=== PATIENT | male | born 2000 | race Caucasian/White ===

== ENCOUNTER 2019-07-05 15:45 | Emergency (ER) | payer MEDICAID, SELFPAY ==
--- NOTE | ~2019-07-05 | XR_ITS ---
XR shoulder LT min 2V 07/05/2019 16:25 INDICATION: Left shoulder pain after lifting injury PROCEDURE: 4 views left shoulder COMPARISON: No prior studies for comparison. FINDINGS: Fracture, dislocation or subluxation is not identified. The soft tissues appear within norm al limits. No foreign bodies are identified. IMPRESSION: 1: NO ACUTE BONE OR JOINT ABNORMALITY IDENTIFIED. Reviewed, dictated and finalized at location A.
[2019-07-05 15:55] VITALS: BP 133/64; PULSE 72; RESP 20; TEMP 37; O2SAT 99
--- NOTE | 2019-07-05 16:05 | ED.GENADULT ---
HPI - General Adult General Chief complaint: Extremity Injury, Upper Stated complaint: left arm pain Time Seen by Provider: 07/05/19 16:10 Source: patient and RN notes reviewed Mode of arrival: ambulatory Limitations: no limitations History of Present Illness HPI narrative: 18-year-old male who presents to [facility] care with complaints of 2 to 3-day duration of shoulder pain which radiates down to his upper arm with no known specific injury to his left shoulder. Patient states that he was lifting a large tea urn at work today and thought his arm was going to give out on him with increase pain to his left shoulder noted. Patient has pain to the left anterior AC joint region radiating down into his left upper arm, patient has full mobility of his left shoulder but with increase in his discomfort, denies any tingling or numbness to his left shoulder, has strong pulses to his left arm with nail beds blanching briskly to his left hand. MD complaint: left shoulder pain Onset (ago): day(s) (2-3) Location: left (shoulder and upper left arm) and upper extremity Radiation: other (To left upper arm) Severity: moderate Severity scale (1-10): 6 Quality: aching and sharp Pain Consistency: constant Relieving factors: none Exacerbating factors: movement and other (lifting) Associated symptoms: denies other symptoms Treatments prior to arrival: NSAID Related Data Allergies Allergy/AdvReac Type Severity Reaction Status Date / Time No Known Allergies Allergy Verified 07/05/19 16:13 Review of Systems Review of Systems: Narrative: CONSTITUTIONAL: Denies fever, chills, or sweats. EYES: Denies visual changes, redness, or discharge. ENT: Denies rhinorrhea, congestion, sore throat, or otalgia. CARDIOVASCULAR: Denies chest pain, palpitations, or edema. RESPIRATORY: Denies cough or dyspnea. GASTROINTESTINAL: Denies abdominal pain, nausea, vomiting, or diarrhea. GENITOURINARY: Denies dysuria or hematuria. SKIN: Denies rash or itching. MUSCULOSKELETAL: Denies back pain, positive left shoulder pain radiating into left upper arm or myalgia. NEUROLOGIC: Denies headache, numbness, or weakness. PSYCHIATRIC: Denies anxiety or depression. All systems reviewed & are unremarkable except as noted in HPI and below PMFSH Past Medical History Medical History (Updated 07/07/19 @ 11:51 by Queenie Barnard NP) ADD (attention deficit disorder) ADHD Fracture of right wrist Social History Social History (Updated 07/05/19 @ 16:22 by Queenie Barnard NP) Smoking status: Current every day smoker Tobacco type: e-cigarettes Gender identity (if verbalized by the patient): Male Comments At time of signature, agree with nursing past medical, social history. There is no relevant family history pertinent to the presenting complaint Exam Narrative: Exam Narrative: GENERAL: Well-appearing, well-nourished, and in no acute distress. HEAD: Normocephalic, atraumatic. EYES: PERRLA and EOMI. ENT: Nares clear, no rhinorrhea or epistaxis. Mucous membranes moist. NECK: Supple.no lymphadenopathy CHEST: Clear to auscultation. No respiratory distress.SAO2 99% on room air HEART: Regular rate and rhythm. No murmur heard. Normal peripheral pulses. ABDOMEN: Soft, nontender, nondistended, normal active bowel sounds. EXTREMITIES: Normal range of motion. No edema.voiced pain in left shoulder going into his upper arm with increase intensity today after lifting tea urn at work, patient has good mobility of shoulder but states increase discomfort with movement.strong pulses with no tingling or numbness to his left arm or hand. SKIN: Warm, dry, no rash. NEURO: No focal deficits. Alert and oriented x3. Course Vital Signs Vital signs: Vital Signs Temperature 37.0 C 07/05/19 15:55 Pulse Rate 72 07/05/19 15:55 Respiratory Rate 20 07/05/19 15:55 Blood Pressure 133/64 07/05/19 15:55 Pulse Oximetry 99 07/05/19 15:55 Temperature 37.0 C 07/05/19 15:55 Pulse Rate 72
--- NOTE | 2019-07-05 17:29 | PC.NURSE ---
noted at discharge xray report not available, pt states will not wait. provider informed she would review report and notify him of results if not negative.
== END 2019-07-05 17:10 | disposition home or self-care (01) ==
PROVIDERS: Emergency Provider Registered Nurse
DX: S43.402A Unspecified sprain of left shoulder joint, initial encounter (principal); X58.XXXA Exposure to other specified factors, initial encounter; F17.200 Nicotine dependence, unspecified, uncomplicated
CPT/HCPCS: 73030; 99213; G0463

== ENCOUNTER 2019-08-12 16:50 | Emergency (ER) | payer MEDICAID, SELFPAY ==
--- NOTE | ~2019-08-12 | XR_ITS ---
EXAMINATION: XR thoracic spine 3V DATE: 08/12/2019 17:32 INDICATION: Back pain TECHNIQUE: AP, lateral and lateral swimmer's views of the thoracic spine were obtained. COMPARISON: None. FINDINGS: There is no fracture, dislocation, or subluxation. The vertebral body heights, alignment, a nd intervertebral disc spaces are normal. The paravertebral soft tissues are unremarkable. IMPRESSION: 1. No acute osseous abnormality. Reviewed, dictated and finalized at location A.
[2019-08-12 16:56] VITALS: BP 134/68; PULSE 107; RESP 20; TEMP 37; O2SAT 99
--- NOTE | 2019-08-12 16:59 | ED.GENADULT ---
HPI - General Adult General Chief complaint: Head Injury Stated complaint: hit head on table Time Seen by Provider: 08/12/19 17:09 Source: patient Mode of arrival: ambulatory Limitations: no limitations History of Present Illness HPI narrative: 18-year-old male patient presents to the [facility] with complaints of a headache after hitting his head on a table today. Patient states about 30 minutes prior to arrival he tripped and fell and hit the front of his head on a plywood table. Patient denies loss of consciousness or passing out. Patient states he does feel little bit dizzy and has about 5 out of 10 head pain. Denies take anything for the pain at this time. Denies any dizziness prior to the fall. Patient states he has been really tired recently because he has been working a lot typically 7 days a week long shifts at [employer] due to the fact that he is on the only one working in his family right now. Patient states that his mother is concerned because he is also had some depression and anxiety lately. Patient states that times he does think of suicide but denies any suicidal or homicidal ideations at this time. Patient states he is really good on some days but feels very depressed on other days. Patient states he has never been treated for depression before in the past and does not currently see a doctor for it. Patient states he works 7 days a week long hour shifts and does not feel like he has time for anything else at this time. Related Data Allergies Allergy/AdvReac Type Severity Reaction Status Date / Time No Known Allergies Allergy Verified 07/05/19 16:13 Review of Systems Review of Systems: Narrative: CONSTITUTIONAL: Denies fever, chills, or sweats. EYES: Denies visual changes, redness, or discharge. ENT: Denies rhinorrhea, congestion, sore throat, or otalgia. CARDIOVASCULAR: Denies chest pain, palpitations, or edema. RESPIRATORY: Denies cough or dyspnea. GASTROINTESTINAL: Denies abdominal pain, nausea, vomiting, or diarrhea. GENITOURINARY: Denies dysuria or hematuria. SKIN: Denies rash or itching. MUSCULOSKELETAL: Denies back pain, joint pain, or myalgia. NEUROLOGIC: Positive headache, denies numbness, or weakness. PSYCHIATRIC: Positive anxiety and depression. [facility] Past Medical History Medical History ADD (attention deficit disorder) ADHD Fracture of right wrist Social History Social History Smoking status: Current every day smoker Tobacco type: e-cigarettes/vaping Gender identity (if verbalized by the patient): Male Comments At the time of my signature I agree with nursing past medical history, surgical, social, and family history. There is no relevant family history pertinent to the presenting complaint. Exam Narrative: Exam Narrative: GENERAL: Well-appearing, well-nourished, and in no acute distress. HEAD: Normocephalic, patient does have a contusion/abrasion noted right in the middle of the upper forehead approximately 2.5 cm. The area does appear red but there is no open wound. No active bleeding noted. EYES: PERRLA and EOM intact without limitation or complaint of pain, no periorbital soft tissue swelling ,no erythema, warmth or tenderness noted, no obvious deformity. No crusting or swelling.no tearing or draining.No photophobia. No nystagmus No FB or lesion on lid eversion. Corneas grossly clear, no obvious FB or hyphens/hypopyon. No injection to sclera. Lids and lashes clear. ENT: Nares clear, no rhinorrhea or epistaxis. Mucous membranes moist. NECK: Supple. No lymphadenopathy CHEST: Clear to auscultation. No respiratory distress. HEART: Regular rate and rhythm. No murmur heard. Normal peripheral pulses. ABDOMEN: Soft, nontender, nondistended, normal active bowel sounds. EXTREMITIES: Normal range of motion. No edema. BACK: Patient is able to ambulated without assistance. Pt is seated on
--- NOTE | 2019-08-12 20:07 | PC.NURSE ---
1725 observed pt leaving room and going to lobby. accompanied pt back to room, informed him xray results not yet available and that he was not discharged. observed steady on feet with no c/o. 1735 determined pt not in room, not in building, not in parking lot. noted pt previously accompanied to clinic with mother, who remained in lobby during stay, refusing to sit in car following [employer] policy. attempted to call pt at [phone] - no answer, left message to return call at [phone] to speak to provider/nurse.
== END 2019-08-12 17:35 | disposition left against medical advice (07) ==
PROVIDERS: Emergency Provider Nurse Practitioner Family
DX: S09.90XA Unspecified injury of head, initial encounter (principal); W18.09XA Striking against other object with subsequent fall, initial encounter
CPT/HCPCS: 72072; 99213; G0463

== ENCOUNTER 2020-03-14 10:21 | Emergency (ER) | payer OTHER, SELFPAY ==
[2020-03-14] VITALS (22 sets, daily range): BP systolic 109–139; BP diastolic 53–77; PULSE 55–91; RESP 8–23; TEMP 36.8; O2SAT 93–100
--- NOTE | ~2020-03-14 | XR_ITS ---
EXAMINATION: XR chest 2V EXAM DATE: 03/14/2020 11:23 INDICATION: Chest pain. Left arm numbness. TECHNIQUE: Portable AP frontal chest x-ray was obtained. There is no prior study for comparison. FINDINGS: The lungs are clear. There are no pleural effusions. The cardiomediastinal silhouette is within normal limits. There is no pneumothorax suspected. The bones and soft tissues are unremarkab le. IMPRESSION: No acute cardiopulmonary findings. Reviewed, dictated and finalized at location B. RGICAL MUSIC DIRECTOR
--- NOTE | 2020-03-14 10:27 | ECG_ITS ---
Measurements Intervals [place] Rate: 72 P: -24 AL: 161 QRS: 143 QRSD: 93 T: -29 QT: 359 QTc: 395 Interpretive Statements SINUS RHYTHM WITH SINUS ARRHYTHMIA RIGHT AXIS DEVIATION INCOMPLETE RIGHT BUNDLE BRANCH BLOCK HIGH LATERAL INFARCT, AGE INDETERMINATE BORDERLINE T WAVE ABNORMALITY- INFERIOR LEADS ABNORMAL ECG Electronically Signed On 03-14-2020 10:52:14 [employer]ITION [employer] WORK[employer] by [place] D.O.
[2020-03-14 11:03] LABS: Basophils Percent Auto 0.4 % (0.2-1.2); Eosinophils Absolute Auto 0.1 K/mm3 (0-0.3); Eosinophils Percent Auto 0.7 % (0-4.4); Hematocrit 43.1 % (42.0-52.0); Hemoglobin 14.8 g/dL (14.0-18.0); Immature Granulocyte Absolute 0.02 K/mm3 (0.00-0.031); Immature Granulocyte Percent A 0.2 % (0-0.5); Lymphocytes Absolute Auto 1.76 K/mm3 (0.9-3.2); Lymphocytes Percent Auto 21.2 % (18.3-44.2); Mean Corpuscular HGB Conc 34.3 g/dl (32-36); Mean Corpuscular Volume 90.4 fl (80-100); Mean Platelet Volume 9.1 fl (7.4-10.4); Monocytes Absolute Auto 0.5 K/mm3 (0.1-0.6); Monocytes Percent Auto 5.9 % (2.6-8.5); Neutrophils Absolute Auto 5.9 K/mm3 (1.3-6.7); Neutrophils Percent Auto 71.6 % (45.5-73.1); Platelet Count Result 288 k/mm3 (150-375); Red Blood Count 4.77 M/mm3 (4.6-6.20); Red Cell Distribution Width 12.2 % (11.5-14.5); White Blood Count 8.3 K/mm3 (4.5-10.0)
[2020-03-14] MEDS: ASPIRIN 81 MG CHEWABLE TABLET 324 MG PO (11:03)
[2020-03-14 11:14] LABS: Prothrombin Time 14.2 Seconds (11.1-14.7)
[2020-03-14 11:15] LABS: Partial Thromboplastin Time 32.3 SECONDS (22.3-36.8)
--- NOTE | 2020-03-14 11:15 | PC.NURSE ---
received report from Asmita FOX. no change in condition. patient here with chest pain. resting on stretcher. waiting for all tests results.
[2020-03-14 11:18] LABS: Anion Gap 11 mmol/L (8-16); Blood Urea Nitrogen 13 mg/dL (9-20); Calcium 9.3 mg/dL (8.4-10.2); Carbon Dioxide 25 mmol/L (22-30); Chloride 106 mmol/L (98-107); Estimated CRCL calculation 144 ml/min; Estimated Glomerular Filt Rate > 60; Glucose 101 mg/dL (75-110); Potassium 3.9 mmol/L (3.4-5.0); Sodium 142 mmol/L (137-145)
[2020-03-14 11:29] LABS: Troponin I < 0.012 ng/mL (0.000-0.034)
[2020-03-14] MEDS: KETOROLAC 30 MG/ML VIAL (*BKC) IM (11:31)
[2020-03-14] MEDS: KETOROLAC 30 MG/ML VIAL (*BKC) IV PUSH (11:34)
[2020-03-14 11:39] LABS: D Dimer 0.27 ug/mL (<0.48)
--- NOTE | 2020-03-14 13:04 | ED.CHESTPAIN ---
HPI - Chest Pain General Chief Complaint: Chest Pain Stated Complaint: CHEST PAIN 929 Time Seen by Provider: 03/14/20 11:05 History of Present Illness HPI narrative: Patient is a 19-year-old male who presents ER with left-sided chest pain. Sudden onset while he was at work. Is located under his left back. Its worse with palpation and movement. No shortness of breath or hemoptysis. No fevers or chills or sweats. Patient also reports he is having some pain in his neck and some numbness in his left arm which concerned him. He was sent here for further evaluation after asking to leave work. No family history of early cardiac or coronary disease. Related Data Allergies Allergy/AdvReac Type Severity Reaction Status Date / Time No Known Allergies Allergy Verified 03/14/20 10:30 Review of Systems Review of Systems: All systems reviewed & are unremarkable except as noted in HPI and below Constitutional: Constitutional: Denies chills, Denies fever(s) and Denies weakness ENT: Denies nasal congestion and Denies sore throat Cardiovascular: Cardiovascular: Reports chest pain, Denies rapid heart rate and Reports radiating jaw, neck or arm pain Respiratory: Respiratory: Denies cough and Denies dyspnea Gastrointestinal: Gastrointestinal: Denies abdominal pain, Denies nausea and Denies vomiting Neurologic: Denies focal weakness and Reports numbness PMFSH Past Medical History Medical History (Updated 03/14/20 @ 13:08 by Todd Stone MD) ADD (attention deficit disorder) ADHD Fracture of right wrist Social History Social History Smoking status: Current every day smoker Tobacco type: e-cigarettes/vaping Gender identity (if verbalized by the patient): Male Exam Narrative: Exam Narrative: GENERAL: Well-appearing, well-nourished, and in no acute distress. HEAD: Normocephalic, atraumatic NECK: Supple. Mild left paraspinal muscular and trapezius muscle pain CHEST: Clear to auscultation. No respiratory distress. Tender palpation left lower chest wall inferior to the pectoralis which reproduces patient's pain. HEART: Regular rate and rhythm. Normal peripheral pulses. ABDOMEN: Soft, nontender, nondistended. EXTREMITIES: Normal range of motion. No edema. NEURO: Alert and oriented x3. No sharp touch deficit left upper extremity. PSYCH: Normal mood and affect. Course Course Emergency Course: Pain resolved with Toradol. Labs unremarkable as is imaging. Discharge home. Pain felt to be musculoskeletal and not cardiac in nature. Vital Signs Vital signs: Vital Signs Temperature 98.2 F 03/14/20 10:27 Pulse Rate 66 03/14/20 10:27 Respiratory Rate 23 H 03/14/20 10:27 Pulse Oximetry 99 03/14/20 10:27 Temperature 98.2 F 03/14/20 10:27 Pulse Rate 69 03/14/20 11:02 Respiratory Rate 13 03/14/20 11:02 Blood Pressure 139/77 03/14/20 11:02 Pulse Oximetry 96 03/14/20 11:02 MDM - Chest Pain Lab Data Result diagrams: 03/14/20 10:56 03/14/20 10:56 Labs: Lab Results 03/14/20 03/14/20 03/14/20 Range/Units 10:56 10:56 10:56 WBC 8.3 (4.5-10.0) K/mm3 RBC 4.77 (4.6-6.20) M/mm3 Hgb 14.8 (14.0-18.0) g/dL Hct 43.1 (42.0-52.0) % MCV 90.4 (80-100) fl MCH 31.0 (26-34) pg MCHC 34.3 (32-36) g/dl RDW 12.2 (11.5-14.5) % Plt Count 288 (150-375) k/mm3 MPV 9.1 (7.4-10.4) fl Immature Gran % (Auto) 0.2 (0-0.5) % Neut % (Auto) 71.6 (45.5-73.1) % Lymph % (Auto) 21.2 (18.3-44.2) % Posey % (Auto) 5.9 (2.6-8.5) % Eos % (Auto) 0.7 (0-4.4) % Baso % (Auto) 0.4 (0.2-1.2) % Lymph # (Auto) 1.76 (0.9-3.2) K/mm3 Posey # (Auto) 0.5 (0.1-0.6) K/mm3 Eos # (Auto) 0.1 (0-0.3) K/mm3 Baso # (Auto) 0.0 (0.0-0.1) K/mm3 Abs Immat Gran (auto) 0.02 (0.00-0.031) K/mm3 Absolute Neuts (auto) 5.9 (1.3-6.7) K/mm3 Absolute Nucleated RB
== END 2020-03-14 13:20 | disposition home or self-care (01) ==
PROVIDERS: Emergency Provider Emergency Medicine
DX: R07.89 Other chest pain (principal); F17.290 Nicotine dependence, other tobacco product, uncomplicated; M54.12 Radiculopathy, cervical region
CPT/HCPCS: 36415; 71046; 80048; 84484; 85025; 85380; 85610; 85730; 93005; 96372; 96374; 99284; A9270; J1885

== ENCOUNTER 2021-07-02 16:07 | Emergency (ER) | payer OTHER, SELFPAY ==
[2021-07-02 16:18] VITALS: BP 120/67; PULSE 75; RESP 16; TEMP 36.7; O2SAT 98
--- NOTE | 2021-07-02 17:16 | ED.URI ---
HPI - URI/Sore Throat General Chief Complaint: Upper Respiratory Infection Stated Complaint: Sore Throat Time Seen by Provider: 07/02/21 16:40 Source: patient, RN notes reviewed and old records reviewed Mode of arrival: ambulatory Limitations: no limitations History of Present Illness HPI Narrative: 20-year-old male who presents to [facility] with complaints of 3-week duration of cough, some sore throat, swelling to his glands, nasal congestion with increase in the last week. Patient states he has been taking some NyQuil and cough drops for his symptoms without resolution. Patient states that his cough has increased, he has had hoarseness, some post nasal drainage. MD elicited complaint: cough, rhinorrhea and nasal congestion Onset (ago): week(s) (3 intermittently with increase symptoms past 1 week duration) Consistency: constant Severity: moderate Exacerbating factors: swallowing Associated symptoms: rhinorrhea, nasal congestion, sore throat and cough Treatments prior to arrival: other (nyquil and cough drops) Related Data Allergies Allergy/AdvReac Type Severity Reaction Status Date / Time No Known Allergies Allergy Verified 07/02/21 16:33 Review of Systems Review of Systems: CONSTITUTIONAL: Denies fever, chills, or sweats. EYES: Denies visual changes, redness, or discharge. ENT: Positive rhinorrhea, congestion, sore throat, no otalgia. CARDIOVASCULAR: Denies chest pain, palpitations, or edema. RESPIRATORY: Positive cough denies dyspnea. GASTROINTESTINAL: Denies abdominal pain, nausea, vomiting, or diarrhea. GENITOURINARY: Denies dysuria or hematuria. SKIN: Denies rash or itching. MUSCULOSKELETAL: Denies back pain, joint pain, or myalgia. NEUROLOGIC: Denies headache, numbness, or weakness. PSYCHIATRIC: Denies anxiety or depression. All systems reviewed & are unremarkable except as noted in HPI and below PMFSH Past Medical History Medical History (Updated 07/02/21 @ 17:46 by Queenie Barnard NP) ADD (attention deficit disorder) ADHD Fracture of right wrist Social History Social History (Updated 07/02/21 @ 17:44 by Queenie Barnard NP) Smoking status: Current every day smoker Tobacco type: e-cigarettes/vaping Substance use type: marijuana Last use: Occasional Living arrangements: with family Gender identity (if verbalized by the patient): Male Comments At time of signature, agree with nursing past medical, surgical, social and family history. There is no relevant family history pertinent to the presenting complaint Exam Narrative: GENERAL: Well-appearing, well-nourished, and in no acute distress. HEAD: Normocephalic, atraumatic. EYES: PERRLA and EOMI. ENT: Nares red with clear rhinorrhea epistaxis. Mucous membranes moist. TMs normal with good light reflex throat red with no exudates or lesions tonsils mildly swollen uvula midline. NECK: Supple. Lymphadenopathy CHEST: Clear to auscultation. No respiratory distress. SaO2 98% on room air frequent cough denies any shortness of breath HEART: Regular rate and rhythm. No murmur heard. Normal peripheral pulses. ABDOMEN: Soft, nontender, nondistended, normal active bowel sounds. EXTREMITIES: Normal range of motion. No edema. SKIN: Warm, dry, no rash. NEURO: No focal deficits. Alert and oriented x3. Course Course Level of Care: Express Care Visit Vital Signs Vital signs: Vital Signs Temperature 36.7 C 07/02/21 16:18 Pulse Rate 75 07/02/21 16:18 Respiratory Rate 16 07/02/21 16:18 Blood Pressure 120/67 07/02/21 16:18 Pulse Oximetry 98 07/02/21 16:18 Temperature 36.7 C 07/02/21 16:18 Pulse Rate 75 07/02/21 16:18 Respiratory Rate 16 07/02/21 16:18 Blood Pressure 120/67 07/02/21 16:18 Pulse Oximetry 98 07/02/21 16:18 MDM - URI/Sore Throat Differential Diagnosis Differential diagnosis: Likely upper respiratory infection, sinusitis, viral infection, pharyngitis and other (Cough with congestion) Medical Records
== END 2021-07-02 17:34 | disposition home or self-care (01) ==
PROVIDERS: Emergency Provider Registered Nurse
DX: J06.9 Acute upper respiratory infection, unspecified (principal); J02.9 Acute pharyngitis, unspecified; R05.9 Cough, unspecified; F17.290 Nicotine dependence, other tobacco product, uncomplicated; F12.90 Cannabis use, unspecified, uncomplicated
CPT/HCPCS: 87081; 87880; 99213; G0463

== ENCOUNTER 2021-08-03 12:26 | Emergency (ER) | payer OTHER, SELFPAY ==
[2021-08-03 12:43] VITALS: BP 130/66; PULSE 101; RESP 16; TEMP 37.1; O2SAT 99
--- NOTE | 2021-08-03 13:21 | ED.MALEGU ---
HPI - Male Genitourinary General Chief complaint: Urogenital-Male Stated complaint: std testing Time Seen by Provider: 08/03/21 13:14 Mode of arrival: ambulatory Limitations: no limitations History of Present Illness HPI Narrative: 20-year-old male presents with concern for possible STD. Reports he reports he has had approximately 30 pound unintentional weight loss over the last several months. Reports he has been more tired than usual. He denies penile discharge, lesions, dysuria, frequency, urgency. He reports, however he has been very sexually active and does not always use protection so he is concerned he could have an STD. Complaint: testicle pain Related Data Allergies Allergy/AdvReac Type Severity Reaction Status Date / Time No Known Allergies Allergy Verified 08/03/21 12:45 Review of Systems Review of Systems: CONSTITUTIONAL: Denies malaise, chills, sweats, or fever. Reports fatigue and unintentional weight loss CARDIOVASCULAR: Denies chest pain, palpitations, or edema. RESPIRATORY: Denies cough or dyspnea. GASTROINTESTINAL: Denies abdominal pain, nausea, vomiting, diarrhea, bloody, or mucous stools. GENITOURINARY: Denies dysuria or hematuria. Reports intermittent testicular aching for the past 3 months, denies testicular redness, swelling, tenderness. Denies penile discharge, lesions SKIN: Denies rash or itching. MUSCULOSKELETAL: Denies back pain or myalgia. NEUROLOGIC: Denies numbness, weakness, or headache. All systems reviewed & are unremarkable except as noted in HPI and below PMFSH Past Medical History Medical History (Updated 08/03/21 @ 13:23 by Gilda Estrada NP) ADD (attention deficit disorder) ADHD Fracture of right wrist Social History Social History (Updated 07/02/21 @ 17:44 by Queenie Barnard NP) Smoking status: Current every day smoker Tobacco type: e-cigarettes/vaping Substance use type: marijuana Last use: Occasional Gender identity (if verbalized by the patient): Male Comments At time of signature, agree with nursing past medical, surgical, social and family history. There is no relevant family history pertinent to the presenting complaint Exam Narrative: GENERAL: Well-appearing, well-nourished, and in no acute distress. HEAD: Normocephalic. EYES: PERRLA, conjunctivae clear. NECK: Supple. No lymphadenopathy CHEST: Clear to auscultation. No respiratory distress. HEART: Regular rate and rhythm. SKIN: Warm, dry, no rash. NEURO: Alert and oriented x3. PSYCH: Normal mood and affect Course Course Emergency Course: Patient advised that he needs to find a primary care doctor for evaluation of his unintentional weight loss. Patient also given information for comprehensive STD testing. Patient is aware of diagnosis, understands and agrees to treatment plan. Anticipatory guidance given. Patient agrees to follow-up as directed and is aware of reasons to seek care at the emergency department. Portions of this record may have been created with voice recognition software Level of Care: Express Care Visit Vital Signs Vital signs: Vital Signs Temperature 98.8 F 08/03/21 12:43 Pulse Rate 101 H 08/03/21 12:43 Respiratory Rate 16 08/03/21 12:43 Blood Pressure 130/66 08/03/21 12:43 Pulse Oximetry 99 08/03/21 12:43 Temperature 98.8 F 08/03/21 12:43 Pulse Rate 101 H 08/03/21 12:43 Respiratory Rate 16 08/03/21 12:43 Blood Pressure 130/66 08/03/21 12:43 Pulse Oximetry 99 08/03/21 12:43 Reviewed. MDM - Male Genitourinary Lab Data Labs: Lab Results 08/03/21 Range/Units 13:10 C.trachomatis RNA (TMA) Pending N.gonorrhoeae RNA (TMA) Pending T. vaginalis Amp RNA Pending Urine Characteristics Clear Critical Care Time Critical Care Time Critical Care Time: No Discharge Plan Discharge Clinical Impression: Possible exposure to STD Patient Disposition: H
[2021-08-03] MEDS: cefTRIAXone 500 MG, LIDOCAINE HCL 1% LOCAL INJ 1 ML IM (13:26)
== END 2021-08-03 13:45 | disposition home or self-care (01) ==
PROVIDERS: Emergency Provider Nurse Practitioner
DX: N50.819 Testicular pain, unspecified (principal); F17.290 Nicotine dependence, other tobacco product, uncomplicated
CPT/HCPCS: 87491; 87591; 87661; 96372; 99213; G0463; J0696

== ENCOUNTER 2021-08-26 12:09 | Emergency (ER) | payer OTHER, SELFPAY ==
[2021-08-26 12:14] VITALS: BP 98/52; PULSE 65; RESP 20; TEMP 37.4; O2SAT 97
--- NOTE | 2021-08-26 12:20 | ED.URI ---
HPI - URI/Sore Throat General Chief Complaint: Upper Respiratory Infection Stated Complaint: sore throat hard time breathing Time Seen by Provider: 08/26/21 12:36 Source: patient and RN notes reviewed Mode of arrival: ambulatory Limitations: no limitations History of Present Illness HPI Narrative: 38-year-old male presents concern for 2-day history of sore throat, nasal congestion, cough. Reports exposure to strep at work. He denies take any [id number] intervention. He denies difficulty swallowing, drooling. He denies headache, nausea, fever, body ache, chills, sweats. Denies shortness of breath. MD elicited complaint: cough and sore throat Related Data Allergies Allergy/AdvReac Type Severity Reaction Status Date / Time No Known Allergies Allergy Verified 08/03/21 12:45 Review of Systems Review of Systems: CONSTITUTIONAL: Denies malaise, chills, sweats, or fever. EYES: Denies visual changes, redness, or discharge. ENT: Reports rhinorrhea, congestion, and sore throat. CARDIOVASCULAR: Denies chest pain, palpitations, or edema. RESPIRATORY: Reports cough. Denies dyspnea. GASTROINTESTINAL: Denies abdominal pain, nausea, vomiting, diarrhea SKIN: Denies rash or itching. MUSCULOSKELETAL: Denies myalgia. NEUROLOGIC: Denies headache. All systems reviewed & are unremarkable except as noted in HPI and below PMFSH Past Medical History Medical History (Updated 08/26/21 @ 12:59 by Gilda Estrada NP) ADD (attention deficit disorder) ADHD Fracture of right wrist Social History Social History (Updated 07/02/21 @ 17:44 by Queenie Barnard NP) Smoking status: Current every day smoker Tobacco type: e-cigarettes/vaping Substance use type: marijuana Last use: Occasional Gender identity (if verbalized by the patient): Male Comments At time of signature, agree with nursing past medical, surgical, social and family history. There is no relevant family history pertinent to the presenting complaint Exam Narrative: GENERAL: Well-appearing, well-nourished, and in no acute distress. HEAD: Normocephalic EYES: PERRLA, conjunctivae clear ENT: Nares clear, turbinates edematous and erythematous, clear discharge. Mucous membranes moist. TM pearly aguirre with dull light reflex bilaterally; no tragal tenderness. Oropharynx erythematous without lesions. Tonsils not enlarged and without exudate, no drooling, no hoarseness, no trismus, uvula midline. NECK: Supple. No lymphadenopathy CHEST: Clear to auscultation, breath sounds equal. No wheezing, rhonchi, rales, or stridor. No respiratory distress, speaks in full sentences. HEART: Regular rate and rhythm. No murmur heard. SKIN: Warm, dry, no rash. NEURO: Alert and oriented x3. PSYCH: Normal mood and affect Course Course Emergency Course: Patient is aware of diagnosis, understands and agrees to treatment plan. Anticipatory guidance given. Patient agrees to follow-up as directed and is aware of reasons to seek care at the emergency department. Portions of this record may have been created with voice recognition software Level of Care: Express Care Visit Vital Signs Vital signs: Reviewed. MDM - URI/Sore Throat MDM Narrative Medical decision making narrative: Differential diagnosis considered: Orellana virus, strep pharyngitis, allergic rhinitis, upper respiratory tract infection, sinusitis, rhinosinusitis, nasopharyngitis. viral pharyngitis, otitis media, otitis externa, pneumonia, bronchitis, viral cough syndrome, viral syndrome, and influenza. Exam findings show no acute concerns or changes; patient is non-toxic appearing and is in no distress. Patient is appropriate for outpatient treatment and follow-up. Lab Data Attestation: I reviewed the patient's lab results. Critical Care Time Critical Care Time Critical Care Time: No Discharge Plan Discharge Clinical Impression: Upper respiratory infection Patient Disposition: Home, Self-Care Condition: Stable Inst
== END 2021-08-26 13:06 | disposition home or self-care (01) ==
PROVIDERS: Emergency Provider Nurse Practitioner
DX: J06.9 Acute upper respiratory infection, unspecified (principal); Z20.822 Contact with and (suspected) exposure to COVID-19
CPT/HCPCS: 87081; 87426; 87880; 99213; C9803; G0463

== ENCOUNTER 2021-09-03 16:50 | Emergency (ER) | payer OTHER, SELFPAY ==
--- NOTE | ~2021-09-03 | XR_ITS ---
EXAM: XR hand LT min 3V DATE: 09/03/2021 17:25 HISTORY: DORSAL 3RD MCP JOINT PAIN AFTER WRESTLING . COMPARISON: None available. FINDINGS: Normal mineralization. No fracture or dislocation. No lytic or blastic lesion. Joint space s are maintained. No erosion or periosteal change. Soft tissues within normal limits. IMPRESSION: No acute osseous finding in the left hand. Reviewed, dictated and finalized at location K.
[2021-09-03 17:09] VITALS: BP 143/80; PULSE 117; RESP 16; TEMP 37.7; O2SAT 97
--- NOTE | 2021-09-03 17:41 | ED.UPPEXIN ---
HPI - Extremity Injury (Upper) General Chief Complaint: Extremity Injury, Upper Stated Complaint: lt hand pain Time Seen by Provider: 09/03/21 17:41 Source: patient, RN notes reviewed and old records reviewed Mode of arrival: ambulatory Limitations: no limitations History of Present Illness HPI narrative: 21 year old male presents to [facility] care with complaints of pain to his dorsal left hand after wrestling injury to his dorsal left hand with swelling which occurred on Saturday evening 2 days ago. He also reports that he has some tenderness to his shoulder blade with no abrasions noted, reports he fell back into the grass on his left shoulder. Patient has equal shoulder blades with full range of motion of bilateral shoulders noted. Patient reports left hand dorsal aspect painful throbbing and rates it a 5/10 has taken Tylenol for his discomfort MD complaint: injury to: left, shoulder (posterior shoulder blade) and hand (dorsal) Onset (ago): day(s) (2) Handedness: right Severity: moderate Severity scale (1-10): 5 Treatments prior to arrival: other (Tylenol) Related Data Home Medications Medication Instructions Recorded Confirmed No Home Medications 09/03/21 09/03/21 Allergies Allergy/AdvReac Type Severity Reaction Status Date / Time No Known Allergies Allergy Verified 09/03/21 17:33 Review of Systems Review of Systems: CONSTITUTIONAL: Denies fever, chills, or sweats. EYES: Denies visual changes, redness, or discharge. ENT: Denies rhinorrhea, congestion, sore throat, or otalgia. CARDIOVASCULAR: Denies chest pain, palpitations, or edema. RESPIRATORY: Denies cough or dyspnea. GASTROINTESTINAL: Denies abdominal pain, nausea, vomiting, or diarrhea. GENITOURINARY: Denies dysuria or hematuria. SKIN: Denies rash or itching. MUSCULOSKELETAL: Positive left shoulder blade discomfort, positive dorsal left hand pain, or myalgia. NEUROLOGIC: Denies headache, numbness, or weakness. PSYCHIATRIC: Denies anxiety or depression. [facility] Past Medical History Medical History ADD (attention deficit disorder) ADHD Fracture of right wrist Surgical History Surgical History H/O right wrist surgery Related to fracture reduction Social History Social History (Updated 07/02/21 @ 17:44 by Queenie Barnard NP) Smoking status: Current every day smoker Tobacco type: e-cigarettes/vaping Substance use type: marijuana Last use: Occasional Gender identity (if verbalized by the patient): Male Comments At time of signature, agree with nursing past medical, surgical, social and family history. There is no relevant family history pertinent to the presenting complaint Exam Narrative: GENERAL: Well-appearing, well-nourished, and in no acute distress. HEAD: Normocephalic, atraumatic. EYES: PERRLA and EOMI. ENT: Nares clear, no rhinorrhea or epistaxis. Mucous membranes moist. TMs normal with good light reflex throat pink with no lesions or exudates NECK: Supple. No lymphadenopathy CHEST: Clear to auscultation. No respiratory distress. SaO2 97% on room air no tachypnea HEART: Regular rate and rhythm. No murmur heard. Normal peripheral pulses. ABDOMEN: Soft, nontender, nondistended, normal active bowel sounds. EXTREMITIES: Normal range of motion. No edema.Exception noted to left dorsal hand with swelling noted, strong left radial pulse with brisk capillary refill. SKIN: Warm, dry, no rash. NEURO: No focal deficits. Alert and oriented x3. Course Course Level of Care: Express Care Visit Vital Signs Vital signs: Vital Signs Temperature 37.7 C H 09/03/21 17:09 Pulse Rate 117 H 09/03/21 17:09 Respiratory Rate 16 09/03/21 17:09 Blood Pressure 143/80 H 09/03/21 17:09 Pulse Oximetry 97 09/03/21 17:09 Oxygen Delivery Room Air 09/03/21 17:09 Temperature 37.7 C H 09/03/21 17:09 Pulse Rate 117 H
== END 2021-09-03 18:15 | disposition home or self-care (01) ==
PROVIDERS: Emergency Provider Registered Nurse
DX: S60.222A Contusion of left hand, initial encounter (principal); X58.XXXA Exposure to other specified factors, initial encounter; Y99.0 Civilian activity done for income or pay; M25.512 Pain in left shoulder
CPT/HCPCS: 73130; 99213; G0463

== ENCOUNTER 2021-11-11 10:51 | Emergency (ER) | payer OTHER, SELFPAY ==
[2021-11-11 10:56] VITALS: BP 129/79; PULSE 78; RESP 20; TEMP 36.4; O2SAT 98
--- NOTE | 2021-11-11 11:19 | ED.URI ---
HPI - URI/Sore Throat General Chief Complaint: Upper Respiratory Infection Stated Complaint: headache running nose chest congestion Time Seen by Provider: 11/11/21 11:20 Source: patient, RN notes reviewed and old records reviewed Mode of arrival: ambulatory Limitations: no limitations History of Present Illness HPI Narrative: 21 year old presents to [facility] care with complaints of cough,headache, upper chest pressure, body aches, sneezing and runny nose with fever up to 100F for the past 2 days. Patient reports that his brother had COVID last week and he has been exposed to him. Patient reports that he has not had COVID vaccinations or any flu shot this season. Patient has not taken anything OTC for his symptoms. Patient reports that cough is productive at times of yellowish mucous, denies any shortness of breath with SAO2 98% on room air no tachypnea noted. MD elicited complaint: fever, cough, rhinorrhea, nasal congestion and other Onset (ago): day(s) (2) Pain scale (0-10): 5 Description of mucous: yellow Treatments prior to arrival: none Related Data Allergies Allergy/AdvReac Type Severity Reaction Status Date / Time No Known Allergies Allergy Verified 09/03/21 17:33 Review of Systems Review of Systems: CONSTITUTIONAL: Positive for fever, chills, or sweats. EYES: Denies visual changes, redness, or discharge. ENT: Positive for rhinorrhea, congestion,no sore throat, or otalgia. CARDIOVASCULAR: Denies chest pain, palpitations, or edema, some upper chest discomfort with coughing RESPIRATORY:Positive for cough denies dyspnea. GASTROINTESTINAL: Denies abdominal pain, nausea, vomiting, or diarrhea. GENITOURINARY: Denies dysuria or hematuria. SKIN: Denies rash or itching. MUSCULOSKELETAL: Denies back pain, joint pain, positive for body aches NEUROLOGIC: Positive for headache, no numbness, or weakness. PSYCHIATRIC: Denies anxiety or depression. All systems reviewed & are unremarkable except as noted in HPI and below PMFSH Past Medical History Medical History ADD (attention deficit disorder) ADHD Fracture of right wrist Surgical History Surgical History H/O right wrist surgery Related to fracture reduction Social History Social History (Updated 07/02/21 @ 17:44 by Queenie Barnard NP) Smoking status: Current every day smoker Tobacco type: e-cigarettes/vaping Substance use type: marijuana Last use: Occasional Gender identity (if verbalized by the patient): Male Comments At time of signature, agree with nursing past medical, surgical, social and family history. There is no relevant family history pertinent to the presenting complaint Exam Narrative: GENERAL:Ill-appearing, well-nourished, and in no acute distress. HEAD: Normocephalic, atraumatic. EYES: PERRLA and EOMI. ENT: Nares mild redness with clear rhinorrhea no epistaxis. Mucous membranes moist.TM's normal throat pink with no lesions or tonsil swelling post nasal drainage NECK: Supple.no lymphadenopathy CHEST: Clear to auscultation. No respiratory distress.cough noted with SAO2 98% on room air HEART: Regular rate and rhythm. No murmur heard. Normal peripheral pulses. ABDOMEN: Soft, nontender, nondistended, normal active bowel sounds. EXTREMITIES: Normal range of motion. No edema. SKIN: Warm, dry, no rash. NEURO: No focal deficits. Alert and oriented x3. Course Course Level of Care: Express Care Visit Vital Signs Vital signs: Vital Signs Temperature 36.4 C 11/11/21 10:56 Pulse Rate 78 11/11/21 10:56 Respiratory Rate 20 11/11/21 10:56 Blood Pressure 129/79 11/11/21 10:56 Pulse Oximetry 98 11/11/21 10:56 Oxygen Delivery Room Air 11/11/21 10:56 Temperature 36.4 C 11/11/21 10:56 Pulse Rate 78 11/11/21 10:56 Respiratory Rate 20 11/11/21 10:56 Blood Pressure 129/79 11/11/21 10:56 Pulse Oximetry 98
== END 2021-11-11 11:45 | disposition home or self-care (01) ==
PROVIDERS: Emergency Provider Registered Nurse
DX: U07.1 COVID-19 (principal); F17.290 Nicotine dependence, other tobacco product, uncomplicated
CPT/HCPCS: 87426; 99213; C9803; G0463

== ENCOUNTER 2021-12-12 09:11 | Emergency (ER) | payer OTHER, SELFPAY ==
--- NOTE | ~2021-12-12 | XR_ITS ---
XR finger 1st RT min 2V DATE: 12/12/2021 09:36 INDICATION: Fall, injury, pain at metacarpophalangeal joint TECHNIQUE: 3 views COMPARISON: None FINDINGS: Old ununited fracture fragments of the distal ulna including ulnar styloid process. No recent fracture or dislocation of the first digit. No periosteal reaction or bone destruction, rad iopaque soft tissue foreign body or subcutaneous emphysema. IMPRESSION: No recent fracture or dislocation Reviewed, dictated and finalized at location B.
[2021-12-12 09:16] VITALS: BP 121/74; PULSE 62; RESP 14; TEMP 37.2; O2SAT 100
--- NOTE | 2021-12-12 09:21 | ED.WOUNDLAC ---
HPI - Wound/Laceration General Chief Complaint: Extremity Injury, Upper Stated Complaint: Right Thumb Injury Time Seen by Provider: 12/12/21 09:23 Source: patient Mode of arrival: ambulatory Limitations: no limitations History of Present Illness HPI narrative: 21 y/o male presented for c/o right thumb pain after injury yesterday. States he fell off a hoverboard and hyperextended the thumb. Endorses full range of motion but reports pain with movement and mild swelling. Also reports the end of the thumb is orange in color, states it was not orange prior to the fall. Denies numbness, tingling, weakness of the hand or fingers. Has not taken anything for pain. Related Data Home Medications Medication Instructions Recorded Confirmed No Home Medications 12/12/21 12/12/21 Allergies Allergy/AdvReac Type Severity Reaction Status Date / Time No Known Allergies Allergy Verified 12/12/21 09:15 Review of Systems Review of Systems: CONSTITUTIONAL: Denies body aches, fever, chills CARDIOVASCULAR: Denies chest pain, palpitations, or edema. RESPIRATORY: Denies cough or dyspnea. GASTROINTESTINAL: Denies abdominal pain, nausea, vomiting, or diarrhea. SKIN: Denies rash, itching, or wounds. MUSCULOSKELETAL: Reports right thumb pain NEUROLOGIC: Denies headache, numbness, tingling, or weakness. All systems reviewed & are unremarkable except as noted in HPI and below PMFSH Past Medical History Medical History ADD (attention deficit disorder) ADHD Fracture of right wrist Surgical History Surgical History H/O right wrist surgery Related to fracture reduction Social History Social History Smoking status: Current every day smoker Tobacco type: e-cigarettes/vaping Substance use type: marijuana Last use: Occasional Gender identity (if verbalized by the patient): Male Comments At time of signature, I have reviewed and agree with nursing past medical, surgical, social and family history unless otherwise noted. Please see nursing chart for further information. There is no relevant family history pertinent to the presenting complaint Exam Narrative: GENERAL: Well-appearing HEAD: Normocephalic, atraumatic. EYES: PERRLA, conjunctivae clear CHEST: Speaks in full sentences. No respiratory distress. HEART: Regular rate and rhythm. Normal and equal peripheral pulses. EXTREMITIES: Right hand has normal strength and sensation, normal range of motion to thumb but endorses some pain with movement. Minimal swelling at MCP, no ecchymosis, No point tenderness. No open wounds, or obvious deformity; pulse palpable and equal bilaterally, skin warm, dry, pink. Capillary refill less than 3 seconds. SKIN: Warm, dry, no rash. [place] discoloration to distal phalanx of right thumb. NEURO: Alert and oriented x3. Course Course Emergency Course: Patient is aware of diagnosis, understands and agrees to treatment plan. Anticipatory guidance given. Patient agrees to follow-up as directed and is aware of reasons to seek care at the emergency department. Portions of this record may have been created with voice recognition software Level of Care: Express Care Visit Vital Signs Vital signs: Vital Signs Temperature 98.9 F 12/12/21 09:16 Pulse Rate 62 12/12/21 09:16 Respiratory Rate 14 12/12/21 09:16 Blood Pressure 121/74 12/12/21 09:16 Pulse Oximetry 100 12/12/21 09:16 Oxygen Delivery Room Air 12/12/21 09:16 Temperature 98.9 F 12/12/21 09:16 Pulse Rate 62 12/12/21 09:16 Respiratory Rate 14 12/12/21 09:16 Blood Pressure 121/74 12/12/21 09:16 Pulse Oximetry 100 12/12/21 09:16 Oxygen Delivery Room Air 12/12/21 09:16 Reviewed Procedures Orthopedic Splinting/Casting right thumb: Lower Extremity Immobilizer: Doug missy
== END 2021-12-12 10:20 | disposition home or self-care (01) ==
PROVIDERS: Emergency Provider Nurse Practitioner Family
DX: S63.601A Unspecified sprain of right thumb, initial encounter (principal); V00.848A Other accident with standing micro-mobility pedestrian conveyance, initial encounter; F17.290 Nicotine dependence, other tobacco product, uncomplicated
CPT/HCPCS: 73140; 99213; G0463

== ENCOUNTER 2022-05-12 13:59 | Emergency (ER) | payer OTHER, SELFPAY ==
[2022-05-12 14:05] VITALS: BP 106/76; PULSE 75; RESP 16; TEMP 36.7; O2SAT 98
[2022-05-12] MEDS: TETANUS,DIPHTHERIA,AC PERTUSSIS ADULT (0.5 ML) BOOSTRIX IM (15:13)
--- NOTE | 2022-05-12 16:18 | ED.GENADULT ---
HPI - General Adult General Chief complaint: Extremity Injury, Upper Stated complaint: Laceration To Finger Source: patient Mode of arrival: ambulatory Limitations: no limitations History of Present Illness HPI narrative: Patient presents for evaluation of laceration to left index finger. Symptom onset just prior to arrival. He has attempted no open a bag with a pocket knife when he accidentally cut himself. He has mild pain in affected area. He has some numbness in the affected digit. No numerical rating to the pain. No loss of range of motion. He is not diabetic. He is right hand dominant. He works at [employer]. No additional complaints or concerns. Related Data Home Medications Medication Instructions Recorded Confirmed No Home Medications 12/12/21 05/12/22 Allergies Allergy/AdvReac Type Severity Reaction Status Date / Time No Known Allergies Allergy Verified 05/12/22 14:10 Review of Systems Review of Systems: CONSTITUTIONAL: Denies fever, chills, or sweats. EYES: Denies visual changes, redness, or discharge. ENT: Denies rhinorrhea, congestion, sore throat, or otalgia. CARDIOVASCULAR: Denies chest pain, palpitations, or edema. RESPIRATORY: Denies cough or dyspnea. GASTROINTESTINAL: Denies abdominal pain, nausea, vomiting, or diarrhea. GENITOURINARY: Denies dysuria or hematuria. SKIN: Reports laceration to left index finger. MUSCULOSKELETAL: Reports pain in left index finger. Denies pain otherwise. NEUROLOGIC: Reports numbness and tingling in left index finger. Denies headache, dizziness, or weakness. PSYCHIATRIC: Denies anxiety or depression. [facility] Past Medical History Medical History ADD (attention deficit disorder) ADHD Fracture of right wrist Surgical History Surgical History H/O right wrist surgery Related to fracture reduction Family History Family History (Updated 05/12/22 @ 16:25 by SAMY Royal, VIOLETA) Mother Family history non-contributory Social History Social History Smoking status: Current every day smoker Tobacco type: e-cigarettes/vaping Substance use type: marijuana Last use: Occasional Living arrangements: with family Gender identity (if verbalized by the patient): Male Exam Narrative: GENERAL: Well-appearing, well-nourished, and in no acute distress. HEAD: Normocephalic, atraumatic. EYES: PERRLA and EOMI. ENT: Nares clear, no rhinorrhea or epistaxis. Mucous membranes moist. Oropharynx without tonsillar hypertrophy exudate or other lesions. Bilateral TMs pearly aguirre nonbulging NECK: Supple. No adenopathy or masses. No carotid bruits or JVD CHEST: Clear to auscultation. No respiratory distress. No wheezes rales or rhonchi HEART: Regular rate and rhythm. No murmur heard. Normal peripheral pulses. ABDOMEN: Soft, nontender, nondistended, normal active bowel sounds. EXTREMITIES: Normal range of motion. No edema. SKIN: There is a 1.2 cm laceration in a flap formation to palmar aspect of distal phalanx of left index finger. Bleeding controlled. NEURO: No focal deficits. Alert and oriented x3. PSYCH: Normal mood and affect. Course Course Emergency Course: This is a 21-year-old male who presented for evaluation of laceration to left index here. Laceration is quite superficial. We discussed her using Dermabond versus sutures. He would prefer sutures. Wound cleaned. Laceration closed with two sutures. Pt tolerated well. Updated on tetanus. Advised on wound care. Wash with antibacterial soap and water TID and apply JASPER. Sutures out in 7-10 days. Follow up with primary. Go to ER for signs of infection. Pt in agreement with plan of care. Level of Care: Express Care Visit Vital Signs Vital signs: Vital Signs Temperature 36.7 C 05/12/22 14:05 Pulse Rate 75
== END 2022-05-12 15:26 | disposition home or self-care (01) ==
PROVIDERS: Emergency Provider Nurse Practitioner; PCP Emergency Medicine
DX: S61.211A Laceration without foreign body of left index finger without damage to nail, initial encounter (principal); W26.0XXA Contact with knife, initial encounter; Z23 Encounter for immunization; F17.290 Nicotine dependence, other tobacco product, uncomplicated; F12.90 Cannabis use, unspecified, uncomplicated
CPT/HCPCS: 12001; 90471; 90715; 99212; G0463

== ENCOUNTER 2022-09-22 12:15 | Emergency (ER) | payer OTHER, SELFPAY ==
--- NOTE | 2022-09-22 12:20 | ED.URI ---
HPI - URI/Sore Throat General Chief Complaint: Upper Respiratory Infection Stated Complaint: Trouble breathing/headaches Time Seen by Provider: 09/22/22 12:35 Source: patient, RN notes reviewed and old records reviewed Mode of arrival: ambulatory Limitations: no limitations History of Present Illness HPI Narrative: 22-year-old male presents to the [facility] with throat swelling and headaches. Also reports fevers. States he has mottling up to try to ?sweat out the infection. Related Data Allergies Allergy/AdvReac Type Severity Reaction Status Date / Time No Known Allergies Allergy Verified 05/12/22 14:10 Review of Systems Review of Systems: All systems reviewed & are unremarkable except as noted in HPI and below Constitutional: Constitutional: Reports no additional constitutional complaints Eyes: Eyes: Reports no additional eye complaints ENT: Reports as per HPI Cardiovascular: Cardiovascular: Reports no additional cardiovascular complaints, Denies chest pain and Denies dyspnea Respiratory: Respiratory: Reports no additional respiratory complaints, Denies chest congestion, Denies cough and Denies dyspnea Gastrointestinal: Gastrointestinal: Reports no additional gastrointestinal complaints, Denies abdominal pain, Denies nausea and Denies vomiting Musculoskeletal: Musculoskeletal: Reports no additional musculoskeletal complaints Integumentary/Breasts: Skin/Breast: Reports system reviewed and no additional complaints, except as docu Neurologic: Reports system reviewed and no additional complaints, except as documented Psychiatric: Psychiatric: Reports no additional psychiatric complaints Allergic/Immunologic: Allergic/Immunologic: Reports no additional allergic/immunologic complaints PMFSH Past Medical History Medical History ADD (attention deficit disorder) ADHD Fracture of right wrist Surgical History Surgical History H/O right wrist surgery Related to fracture reduction Family History Family History Mother Family history non-contributory Social History Social History Smoking status: Current every day smoker Tobacco type: e-cigarettes/vaping Substance use type: marijuana Last use: Occasional Living arrangements: with family Gender identity (if verbalized by the patient): Male Comments At the time of my signature, I reviewed and agree with the nursing past medical, surgical, social, and family history. There is no relevant family history pertinent to the patient complaint. Exam Const: General: cooperative, healthy appearing, comfortable, no acute distress, well developed, alert and well nourished Nutritional Appearance: well nourished Orientation/consciousness: patient oriented x3 Limitations: no limitations HENMT: Head: normal to inspection Ears: hearing grossly normal bilaterally, external ears normal, TM's normal bilaterally and EAC's normal Face/Nose/Sinus: Normal external nose present, Normal nares present, Normal nasal mucous membranes and turbinates present and normal facial exam Face and sinus: normal facial exam Mouth: Yes Normal oral and palatal mucosa present, Yes lip normal and Yes moist mucous membranes Throat: uvula midline, abnormal tonsil bilateral erythema and posterior oropharynx abnormal erythema; no edema and no exudates Eyes: General: appearance normal, both eyes and all related structures Alignment and Position: alignment normal Periorbital: periorbital findings normal Pupils: Equal, round and reactive pupils present EOM: EOMs intact bilaterally Neck: Neck: normal visual inspection, full ROM, no lymphadenopathy and no meningeal signs Chest: Chest palpation & inspection: normal inspection of the chest Resp: Effort & Inspection: normal respi
[2022-09-22 12:28] VITALS: BP 125/63; PULSE 88; RESP 16; TEMP 38.2; O2SAT 98
== END 2022-09-22 12:48 | disposition home or self-care (01) ==
PROVIDERS: Emergency Provider Nurse Practitioner
DX: J02.0 Streptococcal pharyngitis (principal); F17.290 Nicotine dependence, other tobacco product, uncomplicated
CPT/HCPCS: 87880; 99213; G0463

== ENCOUNTER 2023-02-04 14:14 | Emergency (ER) | payer OTHER, SELFPAY ==
[2023-02-04 14:20] VITALS: BP 130/59; PULSE 67; RESP 18; TEMP 36.9; O2SAT 98
--- NOTE | 2023-02-04 14:24 | ED.URI ---
HPI - URI/Sore Throat General Chief Complaint: Upper Respiratory Infection Stated Complaint: Fever/Sore Thorat/Shortness of Breath Time Seen by Provider: 02/04/23 14:28 Source: patient and RN notes reviewed Mode of arrival: ambulatory Limitations: no limitations History of Present Illness HPI Narrative: [age] year old male presents with concern for 2 day history of cough, nasal drainage, shortness of breath. Reports his girlfriend tested positive for COVID. He denies taking [id number] medications for his symptoms. He reports chills, sweats, has not taken his temperature. MD elicited complaint: cough and sore throat Related Data Allergies Allergy/AdvReac Type Severity Reaction Status Date / Time No Known Allergies Allergy Verified 02/04/23 14:28 Review of Systems Review of Systems: CONSTITUTIONAL: Reports malaise, chills, sweats EYES: Denies visual changes, redness, or discharge. ENT: Reports rhinorrhea, congestion, sore throat. Denies sinus pain, otalgia CARDIOVASCULAR: Denies chest pain, palpitations, or edema. RESPIRATORY: Reports cough. Denies dyspnea. GASTROINTESTINAL: Denies abdominal pain, nausea, vomiting, diarrhea SKIN: Denies rash or itching. MUSCULOSKELETAL: Denies myalgia. NEUROLOGIC: Reports headache. All systems reviewed & are unremarkable except as noted in HPI and below PMFSH Past Medical History Medical History ADD (attention deficit disorder) ADHD Fracture of right wrist Surgical History Surgical History H/O right wrist surgery Related to fracture reduction Family History Family History Mother Family history non-contributory Social History Social History Smoking status: Current every day smoker Tobacco type: e-cigarettes/vaping Substance use type: marijuana Last use: Occasional Living arrangements: with family Gender identity (if verbalized by the patient): Male Comments At time of signature, agree with nursing past medical, surgical, social and family history. There is no relevant family history pertinent to the presenting complaint Exam Narrative: GENERAL: Nontoxic appearing, and in no acute distress. HEAD: Normocephalic EYES: PERRLA, conjunctivae clear ENT: Nares clear, turbinates edematous and erythematous, clear discharge. Mucous membranes moist. TM pearly aguirre with dull light reflex bilaterally; no tragal tenderness. Oropharynx not erythematous without lesions. Tonsils not enlarged and without exudate, no drooling, no hoarseness, no trismus, uvula midline. NECK: Supple. No lymphadenopathy CHEST: Clear to auscultation, breath sounds equal. No wheezing, rhonchi, rales, or stridor. No respiratory distress, speaks in full sentences. HEART: Regular rate and rhythm. No murmur heard. SKIN: Warm, dry, no rash. NEURO: Alert and oriented x3. PSYCH: Normal mood and affect Course Course Emergency Course: Patient is aware of diagnosis, understands and agrees to treatment plan. Anticipatory guidance given. Patient agrees to follow-up as directed and is aware of reasons to seek care at the emergency department. Portions of this record may have been created with voice recognition software Level of Care: Express Care Visit Vital Signs Vital signs: Reviewed. MDM - URI/Sore Throat MDM Narrative Medical decision making narrative: Differential diagnosis considered: Orellana virus, strep pharyngitis, allergic rhinitis, upper respiratory tract infection, sinusitis, rhinosinusitis, nasopharyngitis. viral pharyngitis, otitis media, otitis externa, pneumonia, bronchitis, viral cough syndrome, viral syndrome, and influenza. Exam findings show no acute concerns or changes; patient is non-toxic appearing and is in no distress. Patient is appropriate
[2023-02-04 14:28] VITALS: BP 130/59; PULSE 67; RESP 18; TEMP 36.9; O2SAT 98
== END 2023-02-04 14:46 | disposition home or self-care (01) ==
PROVIDERS: Emergency Provider Nurse Practitioner
DX: J06.9 Acute upper respiratory infection, unspecified (principal); Z20.822 Contact with and (suspected) exposure to COVID-19; F17.290 Nicotine dependence, other tobacco product, uncomplicated; F12.90 Cannabis use, unspecified, uncomplicated
CPT/HCPCS: 87426; 99213; C9803; G0463

== ENCOUNTER 2023-03-09 16:46 | Emergency (ER) | payer OTHER, SELFPAY ==
--- NOTE | ~2023-03-09 | XR_ITS ---
EXAM: XR forearm RT 2V DATE: 03/09/2023 17:06 HISTORY: FELL FORWARD 03/09/23. [facility]-SHAFT PAIN SINCE. . COMPARISON: None available. FINDINGS: Normal mineralization. Old ulnar styloid fracture. No acute fracture or dislocation. No ly tic or blastic lesion. Joint spaces are maintained. No erosion or periosteal change. Soft tissues wit hin normal limits. IMPRESSION: No acute osseous finding in the right forearm. If clinical symptoms or mechanism of injur y suggest wrist or elbow injury, consider dedicated radiographs of those specific joints. Reviewed, dictated and finalized at location [facility] IMPRESSION: No acute osseous finding in the right forearm. If clinical symptoms or mechanism of injury suggest wrist or elbow injury, consider dedicated radio graphs of those specific joints.
[2023-03-09 16:52] VITALS: BP 143/66; PULSE 110; RESP 20; TEMP 37.4; O2SAT 99
--- NOTE | 2023-03-09 16:58 | ED.UPPEXIN ---
HPI - Extremity Injury (Upper) General Chief Complaint: Extremity Injury, Upper Stated Complaint: Arm Injury Source: patient Mode of arrival: ambulatory Limitations: no limitations History of Present Illness HPI narrative: 22 y/o male presented for c/o Right forearm pain after a fall just prior to arrival. He states he tripped and struck the forearm on staircase. Presented with abrasion to the forearm. Denies deformity, numbness, tingling, weakness of the extremity. Took Tylenol prior to arrival. Related Data Allergies Allergy/AdvReac Type Severity Reaction Status Date / Time No Known Allergies Allergy Verified 02/04/23 14:28 Review of Systems Review of Systems: CONSTITUTIONAL: Denies body aches, fever, chills EYES: Denies visual changes ENT: Denies rhinorrhea, congestion CARDIOVASCULAR: Denies chest pain, palpitations, or edema. RESPIRATORY: Denies cough or dyspnea. GASTROINTESTINAL: Denies abdominal pain, nausea, vomiting, or diarrhea. SKIN: Denies rash, itching, reports arm abrasion MUSCULOSKELETAL: reports right arm pain Denies back pain, joint pain, or myalgia. NEUROLOGIC: Denies headache, numbness, tingling, or weakness. All systems reviewed & are unremarkable except as noted in HPI and below PMFSH Past Medical History Medical History ADD (attention deficit disorder) ADHD Fracture of right wrist Surgical History Surgical History H/O right wrist surgery Related to fracture reduction Family History Family History Mother Family history non-contributory Social History Social History Smoking status: Current every day smoker Tobacco type: e-cigarettes/vaping Substance use type: marijuana Last use: Occasional Living arrangements: with family Gender identity (if verbalized by the patient): Male Comments At time of signature, I have reviewed and agree with nursing past medical, surgical, social and family history unless otherwise noted. Please see nursing chart for further information. There is no relevant family history pertinent to the presenting complaint Exam Narrative: GENERAL: Well-appearing, and in no acute distress. CHEST: Speaks in full sentences. No respiratory distress. HEART: Regular rate and rhythm. Normal and equal peripheral pulses. EXTREMITIES: RUE has normal strength and sensation, normal range of motion with flexion/extension/rotation of joints, full ROM to fingers, but endorses pain to forearm with movement. Nontender olecranon. No obvious deformity; alignment normal, pulse palpable and equal bilaterally, skin warm, dry, pink. Capillary refill less than 3 seconds. SKIN: Warm, dry; abrasion to right forearm, mild ecchymosis. NEURO: Alert and oriented x3. PSYCH: Normal mood and affect Course Course Emergency Course: Patient is aware of diagnosis, understands and agrees to treatment plan. Anticipatory guidance given. Patient agrees to follow-up as directed and is aware of reasons to seek care at the emergency department. Portions of this record may have been created with voice recognition software Level of Care: Express Care Visit Vital Signs Vital signs: Reviewed MDM - Extremity Injury (Upper) MDM Narrative Medical decision making narrative: results of x-ray reviewed with patient. Abrasion to right forearm cleansed with skin integrity, Neosporin and Band-Aid applied. Patient's injury and pain appear to be of musculoskeletal nature. No concerns for compartment syndrome. No concern for tendon or nerve injury. Discussed physical exam findings. Advised supportive measures and signs/symptoms to go to the ER. Pt is appropriate for outpt treatment and f/u. Differential Diagnosis Differential diagnosis: Likely other ( contusion, abrasion
--- NOTE | 2023-03-09 17:20 | PC.NURSE ---
Wound cleansed with wound cleanser, antibiotic ointment and bandaide applied to abrasion.
== END 2023-03-09 17:22 | disposition home or self-care (01) ==
PROVIDERS: Emergency Provider Nurse Practitioner Family
DX: S50.811A Abrasion of right forearm, initial encounter (principal); W01.198A Fall on same level from slipping, tripping and stumbling with subsequent striking against other object, initial encounter; M79.631 Pain in right forearm; F17.290 Nicotine dependence, other tobacco product, uncomplicated; F12.90 Cannabis use, unspecified, uncomplicated
CPT/HCPCS: 73090; 99213; G0463

== ENCOUNTER 2023-04-21 13:43 | Emergency (ER) | payer OTHER, SELFPAY ==
[2023-04-21 13:54] VITALS: BP 133/62; PULSE 85; RESP 20; TEMP 37.1; O2SAT 100
--- NOTE | 2023-04-21 14:20 | ED.GENADULT ---
HPI - General Adult General Chief complaint: Nausea/Vomiting/Diarrhea Stated complaint: severe abdo pain/headache Source: patient Mode of arrival: ambulatory Limitations: no limitations History of Present Illness HPI narrative: Patient presents for evaluation of abdominal pain for last 2 days. Pain is constant with interval worsening. He states pain is generalized but worse on the right. He rates his pain 6/10 in severity and describes it as stabbing . Reports associated nausea, vomiting, diarrhea, fever and chills. No history of similar symptoms. No blood or mucus in the stool. No recent antibiotic use. No recent travel. No recent identified specific sick contacts. Denies urinary symptoms. No history of abdominal surgeries. He only drinks alcohol occasionally. Related Data Home Medications Medication Instructions Recorded Confirmed No Home Medications 04/21/23 04/21/23 Allergies Allergy/AdvReac Type Severity Reaction Status Date / Time No Known Allergies Allergy Verified 04/21/23 14:03 Review of Systems Review of Systems: CONSTITUTIONAL: reports fever and chills. EYES: Denies visual changes, redness, or discharge. ENT: Denies rhinorrhea, congestion, sore throat, or otalgia. CARDIOVASCULAR: Denies chest pain, palpitations, or edema. RESPIRATORY: Denies cough or dyspnea. GASTROINTESTINAL: Reports abdominal pain, nausea, vomiting, diarrhea. GENITOURINARY: Denies dysuria or hematuria. SKIN: Denies rash or itching. MUSCULOSKELETAL: Denies back pain, joint pain, or myalgia. NEUROLOGIC: Denies headache, numbness, dizziness, or weakness. PSYCHIATRIC: Denies anxiety or depression. [facility] [place] Past Medical History Medical History ADD (attention deficit disorder) ADHD Fracture of right wrist Surgical History Surgical History H/O right wrist surgery Related to fracture reduction Family History Family History Mother Family history non-contributory Social History Social History Smoking status: Current every day smoker Tobacco type: e-cigarettes/vaping Substance use type: marijuana Last use: Occasional Living arrangements: with family Gender identity (if verbalized by the patient): Male Spiritual care concerns: No Exam Narrative: GENERAL: Appears acutely ill but nontoxic. HEAD: Normocephalic, atraumatic. EYES: PERRLA and EOMI. ENT: Nares clear, no rhinorrhea or epistaxis. Mucous membranes moist. Oropharynx without tonsillar hypertrophy exudate or other lesions. Bilateral TMs pearly aguirre nonbulging NECK: Supple. No adenopathy or masses. No carotid bruits or JVD CHEST: Clear to auscultation. No respiratory distress. No wheezes rales or rhonchi HEART: Regular rate and rhythm. No murmur heard. Normal peripheral pulses. ABDOMEN: Soft, Generalized abdominal tenderness without rebound or guarding. EXTREMITIES: Normal range of motion. No edema. SKIN: Warm, dry, no rash. NEURO: No focal deficits. Alert and oriented x3. PSYCH: Normal mood and affect. Course Course Emergency Course: This is a 22-year-old male who presented for evaluation of abdominal pain, nausea, vomiting, diarrhea, fever chills. Influenza swab here negative. He is tender on exam. I recommended he go to the emergency department for further evaluation. He is agreeable with this plan and requested go to [facility]. I contacted [facility] and spoke with nurse, Davon, who indicates that Dr Chamorro will accept pt to Dept there. Level of Care: Express Care Visit Vital Signs Vital signs: Vital Signs Temperature 37.1 C 04/21/23 13:54 Pulse Rate 85 04/21/23 13:54 Respiratory Rate 20 04/21/23 13:54 Blood Pressure 133/62 04/21/23 13:54 Pu
== END 2023-04-21 14:30 | disposition short-term general hospital (02) ==
PROVIDERS: Emergency Provider Nurse Practitioner
DX: R10.84 Generalized abdominal pain (principal); F17.290 Nicotine dependence, other tobacco product, uncomplicated; F12.90 Cannabis use, unspecified, uncomplicated
CPT/HCPCS: 87804; 99213; G0463

== ENCOUNTER 2023-10-10 10:44 | Emergency (ER) | payer SELFPAY ==
[2023-10-10 10:52] VITALS: BP 127/66; PULSE 57; RESP 16; TEMP 36.6; O2SAT 99
--- NOTE | 2023-10-10 10:58 | ED.UPPEXIN ---
HPI - Extremity Injury (Upper) General Chief Complaint: Extremity Injury, Upper Stated Complaint: Right Wrist pain History of Present Illness HPI narrative: patient is a 23-year-old male without significant past medical history, presents to [facility] with 1 week history of right wrist pain. He denies traumatic injuries. He states pain is primarily along the distal radius, he has pain when he grasps with his right hand or when he is moving his right thumb. Pain does radiate slightly up into the forearm with movement. Pain is alleviated completely at rest. He denies modifying factors. He is right-handed and works at [employer] where he frequently uses repetitive movements to complete job duties. He denies any additional complaints. Related Data Allergies Allergy/AdvReac Type Severity Reaction Status Date / Time No Known Allergies Allergy Verified 04/21/23 14:03 Review of Systems Musculoskeletal: Comments: refer to HPI Neurologic: Comments: patient denies numbness or tingling PMFSH Past Medical History Medical History ADD (attention deficit disorder) ADHD Fracture of right wrist Surgical History Surgical History H/O right wrist surgery Related to fracture reduction Family History Family History Mother Family history non-contributory Social History Social History Smoking status: Current every day smoker Tobacco type: e-cigarettes/vaping Substance use type: marijuana Last use: Occasional Living arrangements: with family Gender identity (if verbalized by the patient): Male Spiritual care concerns: No Exam Const: General: cooperative, healthy appearing, comfortable and no acute distress Nutritional Appearance: average body habitus Orientation/consciousness: oriented to person Limitations: no limitations HENMT: Head: normal to inspection, normocephalic and atraumatic Face/Nose/Sinus: Normal external nose present and Normal nares present Face and sinus: normal facial exam Eyes: General: appearance normal, both eyes and all related structures Neck: Neck: normal visual inspection, full ROM, no lymphadenopathy, no meningeal signs, trachea midline and supple Chest: Chest palpation & inspection: normal inspection of the chest Resp: Effort & Inspection: normal respiratory effort Auscultation: clear to auscultation bilaterally Percussion: percussion normal Cardio: Palpation: normal PMI Rate: regular rate Rhythm: regular rhythm Heart sounds: S1 normal heart sound present and S2 normal heart sound present Peripheral pulses: Peripheral pulses 2+ throughout Neuro: General: oriented to person, oriented to place, oriented to time, patient oriented x3, gait normal, tone normal and moves all extremities Cognition (Neuro): normal cognition Extrem: General: normal to inspection, full ROM and capillary refill normal Right upper extremity: wrist ( patient is tender to palpation of the right distal radius) normal to inspection Other: No crepitus, no palpable deformity, pain does increase with Derrick maneuver, distal PMS is intact. There is no erythema or warmth overlying, no open wounds appreciated Course Course Emergency Course: patient's examination and history of presenting illness are consistent with tendinitis/tenosynovitis. There are no infectious findings of concern. Patient does use repetitive movement and this is his dominant hand. Plan therefore to treat with a short steroid course, limiting activity at work for 1 week. He agrees to follow up with his primary care provider if symptoms are improving. Will defer splinting at this time at the patient's request. Level of Care: Express Care Visit ([id number]) Vital Signs Vital signs:
== END 2023-10-10 11:10 | disposition home or self-care (01) ==
PROVIDERS: Emergency Provider Nurse Practitioner Family
DX: M77.8 Other enthesopathies, not elsewhere classified (principal); F17.290 Nicotine dependence, other tobacco product, uncomplicated; F12.90 Cannabis use, unspecified, uncomplicated
CPT/HCPCS: 99213; G0463